=== PATIENT | female | born 1995 | race Caucasian/White ===

== ENCOUNTER 2016-11-02 23:00 | Emergency (ER) | payer BC ==
--- NOTE | 2016-11-02 23:29 | ER PHYSICIAN DOCUMENTATION ---
Physician Documentation [facility] Name:Silvia Granados Age:21 yrs Sex:Female :1995 Arrival Date:11/02/2016 Time:23:00 Bed1 Private MD:Physician, No ED Saad Laird Disposition: 11/02/16 23:14 Discharged to Home/Self Care. Impression: Insect Bite. - Condition is Good. - Discharge Instructions: Allergic Reaction - ALLERGIC REACTION, Insect (General). - Medical Reconciliation form form. - Follow up: Private Physician; When: As needed; Reason: Continuance of care. - Problem is new. - Symptoms have improved. - Notes: We will call you to get treated if the test comes back positve. HPI: 11/03 00:00 This 21 yrs old Female presents to ER via Walk In with complaints of Insect jm Bite. 00:00 The patient was bitten on the lateral aspect of right thigh. Onset: The jm symptom(s)/episode began/occurred unknown. . Associated signs and symptoms: Pertinent positives: swelling at site, Pertinent negatives: fever, pain at site, shortness of breath. Pt is from [place] and thinks she might have a tick bite. She is worried about developing lymes dz. . Historical: - Allergies: No known drug Allergies; - Home Meds: 1. symbicort 2. Flonase Nasal - PMHx: Asthma; - PSHx: None; - Tetanus: < 10 years. - Ebola Screening: : Patient denies exposure to infectious person. Patient denies travel to an Ebola-affected area in the 21 days before illness onset. . - Immunization history: Flu Vaccine < 1 year. - Social history: Smoking status: Patient states was never smoker of tobacco. Patient/guardian denies using alcohol. ROS: 00:00 Constitutional: Negative for fatigue, fever, malaise. jm 00:00 MS/extremity: Positive for rash. 00:00 Skin: Positive for rash, swelling. Exam: 00:00 Constitutional: The patient appears in no acute distress, alert, awake. 00:00 Cardiovascular: Rate: normal, Rhythm: regular. 00:00 Skin: cellulitis, is not appreciated, possible insect bite on the R lateral thigh. . Vital Signs: 11/02 23:05 BP 133 / 96; Pulse 88; Resp 14; Temp 99.7(TE); Pulse Ox 100% on R/A; Weight 54.43 kg; lb Height 5 ft. 2 in. (157.48 cm); Pain 0/10; 23:05 Body Mass Index 21.95 (54.43 kg, 157.48 cm) lb MDM: 23:06 Patient medically screened. ting 11/03 00:00 Differential diagnosis: possible tick bite. Data reviewed: vital signs, nurses notes, ting and as a result, I will discharge patient. Counseling: I had a detailed discussion with the patient and/or guardian regarding: the historical points, exam findings, and any diagnostic results supporting the discharge/admit diagnosis, the need for outpatient follow up, with the patient's primary care provider. ED course: Pt wants Lymes test sent out, so we will do this. I will not treat as there was no tick discovered. . Dispensed Medications: No medications were administered Signatures: Saad Hinkle MD MD jm Bollock, Lynda lb
--- NOTE | 2016-11-02 23:29 | ER NURSING DOCUMENTATION ---
Nurse's Notes [facility] Name:Silvia Granados Age:21 yrs Sex:Female :1995 Arrival Date:11/02/2016 Time:23:00 Bed1 Private MD:Megan Nagy Diagnosis:Insect Bite Presentation: 11/02 23:02 Presenting complaint: Patient states: tick bite to right thigh 2-3 days ago. now with lb reddened area and low grade fever. Transition of care: patient was not received from another setting of care. Notified ED Physician of Manan Ramos notified. 23:02 Acuity: AMARA 4 lb 23:02 Method Of Arrival: Walk In Triage Assessment: 23:05 Bite description: bite sustained to lateral aspect of right thigh is tick by a tick. lb General: Appears in no apparent distress, Behavior is appropriate for age. Pain: Denies pain. Historical: - Allergies: No known drug Allergies; - Home Meds: 1. symbicort 2. Flonase Nasal - PMHx: Asthma; - PSHx: None; - Tetanus: < 10 years. - Ebola Screening: : Patient denies exposure to infectious person. Patient denies travel to an Ebola-affected area in the 21 days before illness onset. . - Immunization history: Flu Vaccine < 1 year. - Social history: Smoking status: Patient states was never smoker of tobacco. Patient/guardian denies using alcohol. Screenin:06 Infectious Disease Risk None. Abuse screen: Denies threats or abuse. Denies injuries lb from another. Nutritional screening: No deficits noted. Assessment: 23:06 See Triage Assessment done by same RN. lb Vital Signs: 23:05 BP 133 / 96; Pulse 88; Resp 14; Temp 99.7(TE); Pulse Ox 100% on R/A; Weight 54.43 kg; lb Height 5 ft. 2 in. (157.48 cm); Pain 0/10; 23:05 Body Mass Index 21.95 (54.43 kg, 157.48 cm) lb ED Course: 23:01 Patient arrived in ED. em2 23:02 Physician, No is Private Physician. em2 23:02 Harriet Pool is Primary Nurse. lb 23:04 Triage completed. lb 23:06 Saad Hinkle MD is Attending Physician. 23:06 Valuables Remains with patient. lb Administered Medications: No medications were administered Outcome: 23:14 Discharge ordered by . ting 23:28 Patient left the ED. usama Signatures: Saad Hinkle MD MD jm Meinking-reg, Ellen-reg em2 Harriet Pool
== END 2016-11-02 23:29 | disposition home or self-care (01) ==
LOC: ER 23:00
DX: S70.361A Insect bite (nonvenomous), right thigh, initial encounter (principal); W57.XXXA Bitten or stung by nonvenomous insect and other nonvenomous arthropods, initial encounter
CPT/HCPCS: 86618; 87476; 87798; 99281